=== PATIENT | female | born 1960 | race Caucasian/White ===

== ENCOUNTER → 2016-08-10 | Outpatient (CLI) | payer BC ==
[~2016-08-10] VITALS: Ht 175.3 cm; Wt 92.2 kg
[~2016-08-10] MED LIST: ALBUTEROL SULF8.5 GM IH; ASPIR-TRIN325 M1 PO; ATIVAN2 MG PO; CELEBREX200 MG PO; CLONAZEPAM1 M1 PO; DILAUDID2 MG PO; Duragesic TD; EFFEXOR XR150 MG PO; KEFLEX500 MG PO; NAPROSYN500 MG PO; OXYCONTIN20 MG PO; PREDNISONE20 MG PO; PROAIR HFA8.5 GM IH; PROZAC40 MG PO; PYRIDIUM200 MG PO; SENOKOT S,PE1 TABLET PO; SEROQUEL12.5 MG PO; VICODIN 5-5001 EACH PO; XANAX0.25 MG PO; ZANTAC150 MG PO
== END | disposition home or self-care (01) ==
LOC: AMB 07:03
DX: K29.70 Gastritis, unspecified, without bleeding (principal); K25.9 Gastric ulcer, unspecified as acute or chronic, without hemorrhage or perforation; R10.13 Epigastric pain; Z68.35 Body mass index [BMI] 35.0-35.9, adult; Z82.49 Family history of ischemic heart disease and other diseases of the circulatory system; Z83.3 Family history of diabetes mellitus; Z81.8 Family history of other mental and behavioral disorders; Z88.5 Allergy status to narcotic agent; Z88.8 Allergy status to other drugs, medicaments and biological substances
CPT/HCPCS: 88305; 88342 TC; J2250

== ENCOUNTER 2017-09-17 16:50 | Emergency (ER) | payer BC ==
[~2017-09-17] VITALS: Ht 175.3 cm; Wt 115.2 kg
[2017-09-17 17:29] LABS: APPEARANCE CLEAR ((CLEAR)); BILIRUBIN NEGATIVE; BLOOD NEGATIVE; COLOR STRAW ((YELLOW)); GLUCOSE (STRIP) NEGATIVE; KETONES NEGATIVE; LEUKOCYTES TRACE; NITRITE NEGATIVE; PROTEIN (STRIP) NEGATIVE; UROBILINOGEN 0.2 MG/DL (0.2-1.0)
[2017-09-17 17:33] LABS: HEMATOCRIT 37.4 % (36.0-46.0); HEMOGLOBIN 12.3 G/DL (11.9-15.5); MCH 27.4 PG (29.0-34.0); MCHC 32.9 G/DL (30.0-36.0); MCV 83.3 FL (83-99); PLATELET COUNT 241 K/uL (156-360); RBC DIS.WIDTH-CV 13.9 % (11.8-14.6); RBC DIS.WIDTH-SD 42.2 % (39-53); RED BLOOD COUNT 4.49 M/uL (3.80-5.20)
[2017-09-17 17:34] LABS: BACTERIA 1+ /HPF; EPITHELIAL CELLS 1+ /HPF; MUCUS TRACE /LPF; RED BLOOD CELLS 0-5 /HPF (0-5); UCUL ADDED? NO; WHITE BLOOD CELLS 0-5 /HPF (0-5)
[2017-09-17 17:49] LABS: ALBUMIN 4.3 g/dL (3.2-4.8); CHLORIDE 106 mEq/L (99-109); POTASSIUM 4.3 mEq/L (3.7-5.4); SODIUM 141 mEq/L (136-147)
[2017-09-17 17:52] LABS: GLUCOSE 74 mg/dL (70-99); TOTAL PROTEIN 7.4 g/dL (6.4-8.3)
[2017-09-17 17:54] LABS: TOTAL BILIRUBIN 0.4 mg/dL (0.0-1.0)
[2017-09-17 17:55] LABS: ALKALINE PHOSPHATASE 92 IU/L (3-129); CREATININE 0.9 mg/dL (0.6-1.3); GFR ESTIMATE (CALCULATED) > 59 mL/min/
[2017-09-17 17:56] LABS: UREA NITROGEN (BUN) 20 mg/dL (9-23)
[2017-09-17 17:57] LABS: AST (GOT) 16 IU/L (2-34)
[2017-09-17 17:58] LABS: ALT (GPT) 16 IU/L (3-49)
[2017-09-17 18:07] LABS: QUANTITATIVE HCG < 4.0 MIU/ML
[2017-09-17 18:23] LABS: LIPASE 77 U/L (1.0-51.0)
[2017-09-17 18:46] LABS: TROP-I INTERPRETATION NEGATIVE; TROPONIN-I < 0.01 ng/mL (0.0-0.30)
[2017-09-17 19:32] LABS: AMYLASE 45 IU/L (1-118)
[2017-09-17 20:45] LABS: TROP-I INTERPRETATION NEGATIVE; TROPONIN-I < 0.01 ng/mL (0.0-0.30)
[2017-09-17 21:22] VITALS: BP 133/90
== END 2017-09-17 21:23 | disposition home or self-care (01) ==
LOC: EME 16:50
PROVIDERS: Physician Assistant Medical
DX: R10.13 Epigastric pain (principal); F32.9 Major depressive disorder, single episode, unspecified; Z96.652 Presence of left artificial knee joint; Z87.11 Personal history of peptic ulcer disease; Z90.710 Acquired absence of both cervix and uterus; Z88.5 Allergy status to narcotic agent; Z90.49 Acquired absence of other specified parts of digestive tract
CPT/HCPCS: 74177; 80053; 81003; 82150; 83690; 84484; 84702; 85027; 93005; 99281; 99284; J1885; J2405; J7030

== ENCOUNTER 2017-12-24 18:28 | Emergency (ER) | payer BC ==
[~2017-12-24] VITALS: Ht 175.3 cm; Wt 112.9 kg
[2017-12-24 22:12] VITALS: BP 127/90
== END 2017-12-24 22:13 | disposition home or self-care (01) ==
LOC: EME 18:28
DX: M17.11 Unilateral primary osteoarthritis, right knee (principal); M79.604 Pain in right leg; D86.9 Sarcoidosis, unspecified; F32.9 Major depressive disorder, single episode, unspecified; Z96.652 Presence of left artificial knee joint; Z90.49 Acquired absence of other specified parts of digestive tract; Z90.710 Acquired absence of both cervix and uterus; Z88.5 Allergy status to narcotic agent; Z88.8 Allergy status to other drugs, medicaments and biological substances
CPT/HCPCS: 73564; 93971; 99281; 99284

== ENCOUNTER 2018-01-22 08:14 | Emergency (ER) | payer BC ==
[~2018-01-22] VITALS: Ht 175.3 cm; Wt 118.9 kg
[2018-01-22] MEDS ORDERED: VALIUM5 MG PO (11:58)
[2018-01-22] MEDS ORDERED: ROXICODONE5 MG PO (11:58)
[2018-01-22 12:35] VITALS: BP 124/70
== END 2018-01-22 12:35 | disposition home or self-care (01) ==
LOC: EME 08:14
DX: S83.241A Other tear of medial meniscus, current injury, right knee, initial encounter (principal); X58.XXXA Exposure to other specified factors, initial encounter; M71.21 Synovial cyst of popliteal space [Baker], right knee; M25.461 Effusion, right knee; D86.9 Sarcoidosis, unspecified; F41.9 Anxiety disorder, unspecified; F32.9 Major depressive disorder, single episode, unspecified; Z96.652 Presence of left artificial knee joint; Z90.49 Acquired absence of other specified parts of digestive tract; Z88.5 Allergy status to narcotic agent; Z88.8 Allergy status to other drugs, medicaments and biological substances
CPT/HCPCS: 73721; 99281; 99284; J1885; J3010